=== PATIENT | male | born 1980 | race African-American/Black ===

== ENCOUNTER 2022-04-10 07:07 | Emergency (ER) | payer OTHER ==
[~2022-04-10] VITALS: Ht 167.6 cm; Wt 96.6 kg
[2022-04-10 08:11] LABS: Urine WBC None Seen /hpf (0 - 3)
[2022-04-10 08:19] LABS: Basophils # (auto) 0.1 10 ^3/uL (0-0.2); Basophils % (auto) 0.8 % (0.0-2.0); Eosinophils # (auto) 0.5 10 ^3/uL (0-0.8); Eosinophils % (auto) 3.3 % (0.0-7.0); Hematocrit 42.4 % (41.0-53.0); Hemoglobin 15.3 g/dL (13.5-17.5); Lymphocytes # (auto) 2.2 10 ^3/uL (0.4-5.4); Lymphocytes % (auto) 14.8 % (10.0-50.0); Mean Corpuscular Hemoglobin 31.8 pg (28.0-32.0); Mean Corpuscular Volume 88.3 fL (80.0-100.0); Monocytes # (auto) 0.8 10 ^3/uL (0-1.3); Monocytes % (auto) 5.7 % (0.0-12.0); Neutrophils % (auto) 75.4 % (37.0-80.0); Red Cell Distribution Width 14.5 % (11.8-14.3); White Blood Cell 14.6 10^3/uL (4.4-10.8)
[2022-04-10 08:27] LABS: Urine Bacteria NONE SEEN /hpf (None Seen); Urine Blood Negative /uL (Negative); Urine Mucus FEW (None Seen); Urine Specific Gravity 1.013 (1.001-1.035)
[2022-04-10 08:38] LABS: INR 0.99 (0.9-1.15); Partial Thromboplastin Time 22.9 sec (23.6-33.0)
[2022-04-10 08:39] LABS: Albumin 3.3 g/dL (3.4-5.0); Calcium 9.4 mg/dL (8.5-10.1); Magnesium 2.3 mg/dL (1.6-2.6); Potassium 4.3 mmol/L (3.5-5.1)
[2022-04-10 08:44] LABS: BUN/Creatinine Ratio 5.9; Bilirubin, Total 0.4 mg/dL (0.2-1.0); Total Protein 7.6 g/dL (6.4-8.2)
[2022-04-10 18:23] VITALS: BP 105/75
[2022-04-10] MEDS ORDERED: ALBUAER3 IN (18:44)
== END 2022-04-10 18:50 | disposition home or self-care (01) ==
LOC: ER 07:07
DX: R07.81 Pleurodynia (principal); K59.00 Constipation, unspecified; Z48.02 Encounter for removal of sutures
CPT/HCPCS: 36415; 71046; 74176; 80053; 81001; 83735; 83880; 84484; 85025; 85610; 85730; 93005